=== PATIENT | male | born 1965 | race Caucasian/White ===

== ENCOUNTER 2023-11-11 06:40 | Day surgery (SDC) | payer OTHER ==
[~2023-11-11] VITALS: Ht 172.7 cm; Wt 91.6 kg
[2023-11-11] MEDS ORDERED: fentaNYL citrate 0.05 MG/ML VIAL ONE (07:27)
[2023-11-11] MEDS: fentaNYL citrate 0.05 MG/ML VIAL IVP ONE (08:33)
[2023-11-11] MEDS: LIDOCAINE 2% 100 MG/5 ML UJET TP ONE (08:39)
== END 2023-11-11 09:20 | disposition home or self-care (01) ==
LOC: MDS 06:40 → MMU 06:50 → MDS 09:20
PROVIDERS: ATTEND Internal Medicine Gastroenterology
DX: Z12.11 Encounter for screening for malignant neoplasm of colon (principal); E78.00 Pure hypercholesterolemia, unspecified; Z79.899 Other long term (current) drug therapy
CPT/HCPCS: 45378; J3010